=== PATIENT | female | born 1955 | race African-American/Black ===

== ENCOUNTER 2017-05-08 17:51 | Inpatient (IN) | payer BC ==
[~2017-05-08] VITALS: Ht 152.4 cm; Wt 84.8 kg
[2017-05-08] MEDS ORDERED: ONDANSETRON HCL 4MG/2ML VIAL IV STA (18:36)
[2017-05-08] MEDS ORDERED: SODIUM CHLORIDE 0.9% 1,000 ML IV ONE (18:36)
[2017-05-08] MEDS ORDERED: KETOROLAC 30MG/ML VIAL IV STA (18:36)
[2017-05-08 19:24] LABS: BASOPHILS % 0.5 % (0.0-2.0); EOSINOPHILS % 0.1 % (0.0-5.0); HEMATOCRIT. 40.1 % (36.0-48.0); HEMOGLOBIN. 13.5 g/dL (12.0-16.0); LYMPHOCYTES % 11.9 % (20.0-50.0); MEAN CORPUSCULAR HEMOGLOBIN 30.4 pg (28.0-32.0); MEAN CORPUSCULAR VOLUME 90.4 fL (81.0-99.0); MEAN PLATELET VOLUME 7.2 fl (7.4-10.4); MONOCYTES % 6.4 % (2.0-8.0); NEUTROPHILS % 81.1 % (40.0-76.0); PLATELET 370 x1000/uL (130-400); RED BLOOD CELL COUNT 4.44 mill/uL (4.2-5.4); RED CELL DISTRIBUTION WIDTH 13.9 % (11.6-14.6)
[2017-05-08 19:28] LABS: INR 1.1; PROTHROMBIN TIME 11.2 sec (9.4-11.6)
[2017-05-08 19:37] LABS: CARBON DIOXIDE 27 mEq/L (21-32); CHLORIDE 105 mEq/L (98-107)
[2017-05-08 19:58] LABS: CLARITY URINE CLOUDY (CLEAR); COLOR URINE YELLOW (YELLOW); KETONES URINE TRACE (NEGATIVE); LEUKOCYTE ESTERASE URINE NEGATIVE (NEGATIVE); NITRITE URINE NEGATIVE (NEGATIVE); OCCULT BLOOD URINE 2+ (NEGATIVE); PH URINE 6.5 (4.5-8.0); PROTEIN URINE TRACE (NEGATIVE); SPECIFIC GRAVITY URINE 1.024 (1.005-1.030)
[2017-05-08] MEDS ORDERED: LEVOFLOXACIN 750MG PREMIX 150 ML IV ONE (20:45)
[2017-05-08] MEDS ORDERED: METRONIDAZOLE 500 MG PREMIX 100 ML IV ONE (20:45)
[2017-05-08] MEDS ORDERED: ACETAMINOPHEN 325MG TABLET PO PRN (22:15)
[2017-05-08] MEDS ORDERED: GUAIFENESIN 200MG/10ML SUGAR FREE UDC PO PRN (22:15)
[2017-05-08] MEDS ORDERED: LORAZEPAM 2MG/ML CPJ IV PRN (22:15)
[2017-05-08] MEDS ORDERED: DOCUSATE SODIUM 100MG CAPSULE PO PRN (22:15)
[2017-05-08] MEDS ORDERED: MAGNESIUM/ALUMINUM HYDROXIDE/SIMETHICONE 30ML UDC PO PRN (22:15)
[2017-05-08] MEDS ORDERED: CLONIDINE 0.1MG TABLET PO PRN (22:15)
[2017-05-08] MEDS ORDERED: IPRATROPIUM/ALBUTEROL 0.5-3(2.5)MG/3ML NEB INH PRN (22:15)
[2017-05-08] MEDS ORDERED: DIPHENHYDRAMINE 50MG/ML VIAL IV PRN (22:15)
[2017-05-08] MEDS ORDERED: HYDROMORPHONE HCL/PF 2MG/ML CPJ IV PRN (23:00)
[2017-05-08] MEDS ORDERED: NA PHOS,M-B/NA PHOS,DI-BA ENEMA 118ML PR PRN (23:00)
[2017-05-09] MEDS ORDERED: AMLO5TAB4 PO (00:42)
[2017-05-09] MEDS ORDERED: DICY10CA88 PO (00:42)
[2017-05-09] MEDS ORDERED: ONDA4TAB5 PO (00:42)
[2017-05-09 00:52] LABS: CHLORIDE 105 mEq/L (98-107)
[2017-05-09 00:58] LABS: CARBON DIOXIDE 26 mEq/L (21-32)
[2017-05-09] MEDS: SODIUM CHLORIDE 0.45% 1,000 ML IV SCH ×2 (01:54→13:21)
[2017-05-09] MEDS: METRONIDAZOLE 500 MG PREMIX 100 ML IV SCH ×3 (05:15→22:57)
[2017-05-09 06:49] LABS: BASOPHILS % 0.3 % (0.0-2.0); EOSINOPHILS % 0.3 % (0.0-5.0); HEMATOCRIT. 38.2 % (36.0-48.0); HEMOGLOBIN. 12.9 g/dL (12.0-16.0); LYMPHOCYTES % 21.3 % (20.0-50.0); MEAN CORPUSCULAR HEMOGLOBIN 30.2 pg (28.0-32.0); MEAN CORPUSCULAR VOLUME 89.7 fL (81.0-99.0); MEAN PLATELET VOLUME 7.6 fl (7.4-10.4); MONOCYTES % 10.1 % (2.0-8.0); PLATELET 370 x1000/uL (130-400); RED BLOOD CELL COUNT 4.26 mill/uL (4.2-5.4); RED CELL DISTRIBUTION WIDTH 13.5 % (11.6-14.6)
[2017-05-09] MEDS ORDERED: POTASSIUM CHLORIDE 20MEQ TABLET SR PO SCH (07:15)
[2017-05-09 07:23] LABS: CHLORIDE 105 mEq/L (98-107)
[2017-05-09 07:53] LABS: CARBON DIOXIDE 23 mEq/L (21-32); HDL CHOLESTEROL 41 mg/dL (40-59); LDL CHOLESTEROL 142 mg/dL (5-100)
[2017-05-09] MEDS ORDERED: ENOXAPARIN 40MG/0.4ML SYR SUBCUT SCH (09:00)
[2017-05-09] MEDS: ONDANSETRON HCL 4MG/2ML VIAL IV PRN ×2 (09:24→16:05)
[2017-05-09] MEDS: HYDROCODONE/ACETAMINOPHEN 5/325MG TABLET PO PRN ×2 (13:20→20:11)
[2017-05-09] MEDS ORDERED: LEVOFLOXACIN 500MG PREMIX 100 ML IV SCH (22:00)
[2017-05-10] MEDS: SODIUM CHLORIDE 0.45% 1,000 ML IV SCH (04:45)
[2017-05-10] MEDS: ONDANSETRON HCL 4MG/2ML VIAL IV PRN (04:45)
[2017-05-10] MEDS: HYDROCODONE/ACETAMINOPHEN 5/325MG TABLET PO PRN ×2 (04:46→09:14)
[2017-05-10] MEDS: METRONIDAZOLE 500 MG PREMIX 100 ML IV SCH (06:34)
[2017-05-10 07:16] LABS: BASOPHILS % 0.4 % (0.0-2.0); EOSINOPHILS % 0.4 % (0.0-5.0); HEMATOCRIT. 38.1 % (36.0-48.0); HEMOGLOBIN. 12.5 g/dL (12.0-16.0); LYMPHOCYTES % 16.8 % (20.0-50.0); MEAN CORPUSCULAR HEMOGLOBIN 30.1 pg (28.0-32.0); MEAN CORPUSCULAR VOLUME 91.4 fL (81.0-99.0); MEAN PLATELET VOLUME 7.5 fl (7.4-10.4); MONOCYTES % 8.7 % (2.0-8.0); NEUTROPHILS % 73.7 % (40.0-76.0); PLATELET 342 x1000/uL (130-400); RED BLOOD CELL COUNT 4.17 mill/uL (4.2-5.4); RED CELL DISTRIBUTION WIDTH 13.6 % (11.6-14.6)
[2017-05-10 08:09] LABS: CARBON DIOXIDE 27 mEq/L (21-32); CHLORIDE 104 mEq/L (98-107)
[2017-05-10] MEDS ORDERED: ENOXAPARIN 30MG/0.3ML SYR SUBCUT SCH (09:00)
[2017-05-10 10:07] VITALS: BP 100/54
== END 2017-05-10 12:20 | disposition home or self-care (01) | DRG 445 ==
LOC: ER 17:51 → 8WST 20:47 → UNDOADMIN 20:47 → ENRESERV 21:30 → 8WST 05-09 01:46
PROVIDERS: ADMIT Internal Medicine; ATTEND Internal Medicine
DX: K80.00 Calculus of gallbladder with acute cholecystitis without obstruction (principal); R65.10 Systemic inflammatory response syndrome (SIRS) of non-infectious origin without acute organ dysfunction; I10 Essential (primary) hypertension; E86.0 Dehydration; Z79.899 Other long term (current) drug therapy; Z88.0 Allergy status to penicillin; Z98.51 Tubal ligation status
CPT/HCPCS: 36415; 76705; 80048; 80053; 80061; 81001; 83690; 85025; 85610; 96361; 96365; 96368; 96375; 99285; C1893; J1170; J1650; J1885; J1956; J2405; J3490; J7030